=== PATIENT | female | born 1990 | race Caucasian/White ===

== ENCOUNTER 2016-12-01 23:06 | Emergency (ER) | payer OTHER ==
[~2016-12-01] VITALS: Ht 160 cm; Wt 72.6 kg
[2016-12-01 23:45] LABS: Basophils # (auto) 0.1 uL; Basophils % (auto) 0.8 % (0.0-2.0); Eosinophils # (auto) 0.3 uL; Eosinophils % (auto) 1.7 % (0.0-7.0); Hematocrit 41.6 % (36.0-46.0); Hemoglobin 14.6 g/dL (12.2-16.2); Lymphocytes # (auto) 3.6 uL; Lymphocytes % (auto) 23.2 % (10.0-50.0); Mean Corpuscular Hemoglobin 30.5 pg (28.0-32.0); Mean Corpuscular Hgb Conc. 35.2 g/dL (32.0-36.0); Mean Corpuscular Volume 86.8 fL (80.0-100.0); Mean Platelet Volume 8.1 fL (6.9-10.8); Monocytes # (auto) 0.7 uL; Monocytes % (auto) 4.7 % (0.0-12.0); Neutrophils # (auto) 10.8 uL; Neutrophils % (auto) 69.6 % (37.0-80.0); Platelet Count (auto) 321 10^3/uL (140-450); Red Cell Distribution Width 12.8 % (11.8-14.3); White Blood Cell 15.5 10^3/uL (4.4-10.8)
[2016-12-01 23:48] LABS: Urine Bilirubin Negative (Negative); Urine Blood Negative /uL (Negative); Urine Glucose Normal (Normal); Urine Ketone Negative (Negative); Urine Nitrite Negative (Negative); Urine RBC <1 /hpf (0 - 4); Urine Squamous Epithelial Cell FEW /hpf (<5); Urine Urobilinogen Normal (Negative); Urine pH 6.5 (5.0-8.0)
[2016-12-01 23:56] LABS: Urine Color Straw (Yellow)
[2016-12-02] LABS: Albumin 4.2 g/dL (3.4-5.0); BUN/Creatinine Ratio 7.9; Potassium 3.8 mmol/L (3.5-5.1)
[2016-12-02 00:03] LABS: Bilirubin, Total 0.5 mg/dL (0.2-1.0); Total Protein 8.3 g/dL (6.4-8.2)
[2016-12-02] MEDS ORDERED: SODIUM CHLORIDE 0.9% 1,000 ML IV ONE (01:45)
[2016-12-02] MEDS ORDERED: cefTRIAXone 1GM/50ML D5W 50 ML IV ONE (01:45)
[2016-12-02 03:34] VITALS: BP 130/83
== END 2016-12-02 03:35 | disposition home or self-care (01) ==
LOC: ER 23:09
DX: M54.9 Dorsalgia, unspecified (principal)
CPT/HCPCS: 36415; 74176; 80053; 81001; 84702; 85025; 87086; 87088; 87186; 96365; 99285; J0696; J7030